=== PATIENT | female | born 1980 | race Caucasian/White ===

== ENCOUNTER 2020-02-09 15:14 | Emergency (ER) | payer OTHER ==
[~2020-02-09] VITALS: Ht 157.5 cm; Wt 68.0 kg
[2020-02-09 15:20] VITALS: BP 101/73
--- NOTE | 2020-02-09 15:30 | NUR ---
39 YEAR OLD FEMALE COMPLAINS OF LOWER ABDOMINAL PAIN X YESTERDAY. PT STATES NAUSEA AND VOMIT. PT STATES LAST BM THIS MORNING, DENIES ANY CHANGE IN URINATION. PT STATES SYMPTOMS SIMILAR TO PREVIOUS OVARIAN CYST. PT AOX4, BREATHING EVEN AND UNLABORED, SKIN WARM AND DRY. BED IN LOWEST POSITION, LOCKED, BED RAIL UPX1. PMH - OVARIAN CYST ALLERGIES - NKA
[2020-02-09] MEDS ORDERED: KETOROLAC 30 MG/ML VIAL IM ONE (15:40)
--- NOTE | 2020-02-09 15:42 | NUR ---
PT AMBULATED TO ER BED 07
--- NOTE | 2020-02-09 15:55 | NUR ---
ULTRASOUND AT BEDSIDE
[2020-02-09 15:59] LABS: BASOPHILS % (AUTO) 0.1 % (0.0-2.0); EOSINOPHILS # (AUTO) 0.1 K/uL (0-0.4); EOSINOPHILS % (AUTO) 1.6 % (0.0-4.0); HEMATOCRIT 42.6 % (36-48); HEMOGLOBIN 14.1 g/dL (12.0-16.0); LYMPHOCYTES # (AUTO) 1.6 K/uL (2.5-16.5); LYMPHOCYTES % (AUTO) 18.4 % (20.5-51.1); MEAN CORPUSCULAR HEMOGLOBIN 32 pg (27-31); MEAN CORPUSCULAR HGB CONC 33 g/dL (33-37); MEAN CORPUSCULAR VOLUME 95.7 fL (80-94); MONOCYTES % (AUTO) 11.3 % (1.7-9.3); NEUTROPHILS # (AUTO) 5.8 K/uL (1.8-7.7); NEUTROPHILS % (AUTO) 68.6 % (42.2-75.2); PLATELET COUNT (AUTO) 285 K/uL (140-450); RED BLOOD CELL COUNT(AUTO) 4.45 MIL/uL (4.20-5.40); RED CELL DISTRIBUTION WIDTH 12.7 % (11.6-13.7); WHITE BLOOD COUNT (AUTO) 8.5 K/uL (4.8-10.8)
[2020-02-09 16:13] LABS: APPEARANCE,URINE SL CLOUDY (CLEAR); BILIRUBIN,URINE NEGATIVE (NEGATIVE); BLOOD, URINE 2+ (NEGATIVE); COLOR,URINE YELLOW (YELLOW); LEUKOCYTE ESTERASE ,URINE 3+ (NEGATIVE); NITRITE, URINE POSITIVE (NEGATIVE); UGLUCOSE NEGATIVE (NEGATIVE)
--- NOTE | 2020-02-09 16:14 | NUR ---
PT ALERT AND AWAKE, BREATHING EVEN AND UNLABORED
[2020-02-09 16:22] LABS: ALBUMIN 3.6 g/dL (3.4-5.0); ANION GAP 14.3 (8-16); CARBON DIOXIDE 27.6 mmol/L (21-32); CREATININE 0.9 mg/dL (0.6-1.3); POTASSIUM 3.9 mmol/L (3.5-5.1); TOTAL BILIRUBIN 0.6 mg/dL (0.0-1.0)
[2020-02-09 17:16] LABS: RBC,URINE 50-80 /HPF (0-5); WBC,URINE 80-100 /HPF (0-5); YEAST,URINE Moderate /HPF (None Seen)
[2020-02-09 17:33] VITALS: BP 111/68
--- NOTE | 2020-02-09 17:34 | NUR ---
Patient discharged with v/s stable. Written and verbal after care instructions given and explained. Patient alert, oriented and verbalized understanding of instructions. Ambulatory with steady gait. All questions addressed prior to discharge. ID band removed. Patient advised to follow up with PMD. Rx of PHENAZOPYRIDINE,CEPHALEXIN,IBU given. Patient educated on indication of medication including possible reaction and side effects. Opportunity to ask questions provided and answered.
--- NOTE | 2020-02-11 11:53 | NUR ---
Urine culture received. Dr. Rodgers reviewed the culture and ordered for change in prescription. Rx for Macrobid 100mg BIX x 5 days. I called and spoke with patient to advise her of the results and the change in RX. Pt was instructed to discontinue the use of Keflex and start Macrobid today and continue until finished. Patient requesting [facility] on [address] in [place] as pharmacy preference. 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 I spoke with pharmacist and RX given. Results placed in discrepency folder.
== END 2020-02-09 17:34 | disposition home or self-care (01) ==
LOC: MED 15:14
DX: N39.0 Urinary tract infection, site not specified (principal); N83.209 Unspecified ovarian cyst, unspecified side
CPT/HCPCS: 36415; 76856; 80053; 81001; 81025; 83690; 85025; 87086; 87186; 96372; 99284; J1885; Q0092

== ENCOUNTER 2021-09-20 16:13 | Emergency (ER) | payer OTHER ==
[~2021-09-20] VITALS: Ht 157.5 cm; Wt 76.7 kg
[2021-09-20 16:16] VITALS: BP 132/80
--- NOTE | 2021-09-20 16:29 | NUR ---
PT TAKEN TO ER BED 4 VIA W/C.
--- NOTE | 2021-09-20 16:32 | NUR ---
LAN SAINITO AT PT BEDSIDE FOR FURTHER EVALUATION.
--- NOTE | 2021-09-20 16:41 | NUR ---
41 Y/O FEMALE C/O LEFT FOOT PAIN 01/20 DESCRIBES ACHING S/P FALLING DOWN STAIR 2 STEPS X LAST NIGHT. NOTED +2 NON-PITTING EDEMA TO LEFT FOOT AND MINIMAL BRUISING. PT TOOK MOTRIN 800 MG 30 MINS AGO. DENIES FEVER/CHILLS. DENIES N/V/D. PMH: BREAST IMPLANT NKA
--- NOTE | 2021-09-20 17:30 | NUR ---
EMT AT PT BEDSIDE FOR SPLINT.
--- NOTE | 2021-09-20 17:41 | NUR ---
AIR CAST APPLIED TO LEFT ANKLE. CRUTCHES PROVIDED.
--- NOTE | 2021-09-20 17:42 | NUR ---
Patient discharged with INFORMATION FOR FOOT SPRAIN v/s stable. Written and verbal after care instructions given. Patient verbalized understanding. Ambulatory with steady gait. All questions addressed prior to discharge. Advised to follow up with PMD.
[2021-09-20 17:43] VITALS: BP 132/80
== END 2021-09-20 17:43 | disposition home or self-care (01) ==
LOC: MED 16:13
DX: S90.32XA Contusion of left foot, initial encounter (principal); W10.8XXA Fall (on) (from) other stairs and steps, initial encounter; Y93.89 Activity, other specified; Y92.89 Other specified places as the place of occurrence of the external cause; Y99.8 Other external cause status
CPT/HCPCS: 73630; 99283